=== PATIENT | male | born 1945 | race Caucasian/White ===

== ENCOUNTER 2021-11-24 07:37 | Observation (INO) | payer OTHER, BC ==
[~2021-11-24] VITALS: Ht 180.3 cm; Wt 117.9 kg
[2021-11-24] MEDS ORDERED: XTANDI40 MG PO ×2 (08:01→16:05)
[2021-11-24] MEDS ORDERED: HYDR1TAB94 PO (08:01)
[2021-11-24 08:22] LABS: BASOPHILS ABSOLUTE AUTO 0.03 K/mm3 (0.00-0.23); BASOPHILS PERCENT AUTO 0 % (0-2); EOSINOPHILS ABSOLUTE AUTO 0.02 K/mm3 (0.00-0.68); EOSINOPHILS PERCENT AUTO 0 % (0-6); Hematocrit 36.2 % (37.0-53.0); Hemoglobin 12.6 g/dL (13.5-17.5); IMMATURE GRAN ABSOLUTE AUTO 0.04 K/mm3 (0.00-0.10); IMMATURE GRAN PERCENT AUTO 0 % (0-1); LYMPHOCYTES ABSOLUTE AUTO 0.56 K/mm3 (0.84-5.20); LYMPHOCYTES PERCENT AUTO 6 % (21-46); MONOCYTES ABSOLUTE AUTO 0.58 K/mm3 (0.16-1.47); MONOCYTES PERCENT AUTO 6 % (4-13); Mean Corpuscular HGB 32.2 pg (26.0-34.0); Mean Corpuscular HGB Conc 34.8 g/dL (31.5-36.5); Mean Corpuscular Volume 93 fL (80-100); Mean Platelet Volume 9.4 fL (9.1-12.4); NEUTROPHILS ABSOLUTE AUTO 8.43 K/mm3 (1.96-9.15); NEUTROPHILS PERCENT AUTO 87 % (41-73); Platelet Count 140 K/mm3 (150-400); RDW Coefficient Variation 13.1 % (11.7-14.2); RDW Standard Deviation 44.4 fL (35.1-46.3); Red Blood Cell Count 3.91 M/mm3 (4.30-5.90); White Blood Cell Count 9.66 K/mm3 (4.00-11.30)
[2021-11-24 08:33] LABS: Albumin, Blood 3.6 g/dL (3.4-5.0); Albumin/Globulin Ratio 1.1 (0.8-1.8); Bilirubin, Direct 0.3 mg/dL (0.0-0.3); Bilirubin, Indirect 0.9 mg/dL (0.1-0.7); Bilirubin, Total 1.2 mg/dL (0.1-1.0); Bun/Creatinine Ratio 21.7 (12.0-20.0); Calcium, Blood 9.2 mg/dL (8.5-10.1); Creatinine, Blood 0.78 mg/dL (0.60-1.20); Globulin, Blood 3.3 g/dL (2.2-4.0); Magnesium, Blood 1.9 mg/dL (1.6-2.4); Potassium, Blood 3.8 mmol/L (3.5-5.5); Total Protein, Blood 6.9 g/dL (6.4-8.2)
[2021-11-24 08:39] LABS: Source, Urine Clean Catch
[2021-11-24 08:45] LABS: Blood, Urine 1+ (Neg); Glucose Qualitative, Urine Neg (Neg); Ketones, Urine 2+ (Neg); Leukocyte Esterase, Urine 1+ (Neg); Nitrite, Urine Neg (Neg); Protein, Urine 2+ (Neg); Specific Gravity, Urine 1.025 (1.003-1.022); Urobilinogen, Urine 1+ (Normal)
[2021-11-24 09:03] LABS: Appearance, Urine Cloudy (Clear); Bilirubin, Urine 1+ (Neg); Color, Urine Amber (P-Yellow)
[2021-11-24 09:04] LABS: Amorphous Heavy (0-Heavy)
[2021-11-24 09:06] LABS: Bacteria Few /hpf; Red Blood Cells, Urine 0-2 /hpf (0-2); Squamous Epithelial Cells Rare /hpf (Few); White Blood Cells, Urine 0-2 /hpf (0-5)
[2021-11-24 11:31] LABS: Influenza A, PCR NEGATIVE (NEGATIVE); Influenza B, PCR NEGATIVE (NEGATIVE); Resp Syncytial Virus, PCR NEGATIVE (NEGATIVE); SARS-Cov-2 (COVID-19) PCR, MMC NEGATIVE (NEGATIVE)
--- NOTE | 2021-11-24 11:52 | NUR ---
11/24/21 1152 Ursula Hinson PT RECIEVED ANITBIOTICS IN THE ER. DR MAN ALSO GAVE ANCEF 2G IV PUSH AT 1133
--- NOTE | 2021-11-24 13:19 | NUR ---
PT ARRIVED TO UNIT FROM PACU A&OX4. REPORTS "MINIMAL" PAIN, STATING 100% BETTER THAN WHEN CAME TO ED. LCA. HRR. VSS. BT HYPO X4. LAP SITES TO ABD COVERED WITH GAUZE AND OPSITE; CDI. ORIENTED PT TO ROOM/CALL LIGHT. ADVISED PT TO CALL BEFORE GETTING UP. S.O. AT BEDSIDE.
[2021-11-24] MEDS ORDERED: ZOCOR20 MG PO (16:06)
[2021-11-24] MEDS ORDERED: LIDO700A20 TOP (16:06)
[2021-11-24] MEDS ORDERED: CALCIUM 500 MG1 EAC2 PO (16:07)
--- NOTE | 2021-11-24 16:54 | NUR ---
SUMMARY NO ACUTE CHANGES SINCE ARRIVING TO FLOOR FROM PACU. DENIES PAIN, N/V OR SOB. TOLERATING CLEAR LIQUIDS. VSS. 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 ORIENTED TO USE OF CALL LIGHT, WHICH IS IN REACH. GAUZE W/OPSITE TO LAP ABD X3; CDI. PT PLEASANT AND COOPERATIVE.
--- NOTE | 2021-11-25 05:13 | NUR ---
PT LYING IN BED, APPEARS TO BE SLEEPING, RESP E/U. VSS T/O NIGHT. DRESSINGS INTACT, NO INCREASED DRNG NOTED TO UMBILICUS SITE, OTHER SITES CDI. PT REP PAIN MILD FOR MOST OF NIGHT, DID REQ 1 NORCO EARLY THIS AM. PT JUHI PO, DENIED N/V, REP PASSING FLATUS, IS VOIDING URINE W/O DIFFICULTY. PT UP IN ROOM W/SBA, JUHI WELL.
[2021-11-25] MEDS ORDERED: MIRALAX1713 PO (09:25)
--- NOTE | 2021-11-25 10:40 | NUR ---
DISCHARGE PT DISCHARGED HOME FROM UNIT AT APROX 1015. PT GIVEN WRITTEN AND VERBAL DISCHARGE INSTRUCTIONS AND VERBALIZED UNDERSTANDING OF THESE INSTRUCTIONS. IV REMOVED. WRITTEN RX FOR PAIN MEDICATION GIVEN TO PT. COPY IN CHART WC TO CAR.
== END 2021-11-25 10:00 | disposition home or self-care (01) ==
LOC: ER 07:37 → SURS 10:37 → ER 10:37 → SURS 10:37
PROVIDERS: Student in an Organized Health Care Education/Training Program; ADMIT Surgery
DX: K35.33 Acute appendicitis with perforation, localized peritonitis, and gangrene, with abscess (principal); Z85.46 Personal history of malignant neoplasm of prostate; Z20.822 Contact with and (suspected) exposure to COVID-19
CPT/HCPCS: 0241U; 36415; 74177; 80048; 80076; 81001; 83605; 83690; 83735; 85025; 87086; 88304; 96366; 96372; 96374-59; 96375; 96376; 99285-25; A9270; G0378; J0330; J1100; J1650; J1885; J2270; J2370; J2405; J2543; J2704; J3010; J7030; J7040; Q9967